=== PATIENT | female | born 1945 | race African-American/Black ===

== ENCOUNTER 2017-06-23 17:45 | Emergency (ER) | payer OTHER ==
[~2017-06-23] VITALS: Ht 162.6 cm; Wt 63.5 kg
[~2017-06-23 17:45] MED LIST: AMLODIPINE BESY10 MG PO; ASPIRIN81 M2 PO; CALCIUM 600 +1 EAC1 PO; CENTRUM COMPLE1 EACH PO; COLESTIPOL HCL1 G1 PO; COQ-10100 MG PO; HYDROCHLOROTHIA25 M2 PO; LEVAQUIN 500 M500 MG PO; POTASSIUM20; PRAVACHOL 20 MG20 M1 PO; PREDNISONE 20 M20 M1 PO; PROVENTIL HFA6.7 G1 INH
[2017-06-23 18:51] LABS: ABSOLUTE NEUTROPHILS 2.5 thou/uL (1.4-8.2); BASOPHILS 0.9 % (0.0-2.0); EOSINOPHILS 2.7 % (0.0-3.0); HEMOGLOBIN 8.8 gm/dL (12.0-15.0); LYMPHOCYTES 23.8 % (24.0-44.0); MCH 23.9 pg (26.0-34.0); MCHC 32.4 g/dL (28.0-37.0); MCV 73.6 fL (80.0-100.0); MONOCYTES 6.1 % (1.0-8.0); PLATELET COUNT 388 thou/uL (150-400); POLYS 66.5 % (36.0-66.0); RBC 3.67 mil/uL (4.20-5.00); RDW 16.1 % (10.5-14.5); WBC 3.7 thou/uL (4.0-11.0)
[2017-06-23 19:09] LABS: CALCIUM 8.9 mg/dL (8.5-10.1); POTASSIUM 3.6 mmol/L (3.5-5.1)
[2017-06-23 19:13] LABS: ALBUMIN 2.9 g/dL (3.4-5.0); TOTAL BILIRUBIN 0.3 mg/dL (<0.1-1.0); TOTAL PROTEIN 6.7 g/dL (6.4-8.2)
[2017-06-23] MEDS ORDERED: LIPITOR 20 MG T20 M1 PO (19:16)
[2017-06-23] MEDS ORDERED: FENOFIBRATE160 MG PO (19:17)
[2017-06-23] MEDS ORDERED: NEURONTIN 300300 M1 PO (19:18)
[2017-06-23] MEDS ORDERED: LASIX 20 MG TAB20 MG PO (19:18)
[2017-06-23] MEDS ORDERED: AVAPRO300 MG PO (19:19)
[2017-06-23] MEDS ORDERED: PROAIR HFA8.5 GM INH (19:21)
[2017-06-23 19:52] LABS: URINE BILIRUBIN 1+ (Negative); URINE BLOOD NEGATIVE (Negative); URINE CLARITY CLEAR; URINE COLOR YELLOW; URINE GLUCOSE-RANDOM* NEGATIVE (Negative); URINE KETONES NEGATIVE (Negative); URINE LEUKOCYTES-REFLEX NEGATIVE (Negative); URINE NITRITE-REFLEX NEGATIVE (Negative); URINE PROTEIN (DIPSTICK) TRACE (Negative); URINE SPECIFIC GRAVITY 1.025 (1.005-1.035); URINE UROBILINOGEN 0.2 E.U./dl (0.2-1.0)
[2017-06-23 19:55] LABS: ICTOTEST (BILI CONFIRMATORY) Negative (Negative)
[2017-06-23 20:19] VITALS: BP 140/63
[2017-10-12] MEDS ORDERED: COLESTID1 GM PO (14:06)
[2017-10-12] MEDS ORDERED: LIPITOR 10 MG PO (14:06)
[2017-10-12] MEDS ORDERED: [UNRECOGNIZED DRUG - OTHER] DISSOLVE (14:06)
[2017-10-12] MEDS ORDERED: GABAPENTIN 300 MG PO (14:06)
[2017-10-12] MEDS ORDERED: POTASSIUM CHLORIDE E PO (14:06)
[2017-10-12] MEDS ORDERED: LASIX 20 MG TAB20 MG PO (14:06)
[2017-10-12] MEDS ORDERED: IRON325 PO (14:06)
[2017-10-12] MEDS ORDERED: PROTONIX40 M1 PO (14:06)
[2017-10-12] MEDS ORDERED: ZOFRAN 4 MG DISSOLVE (14:06)
[2017-10-12] MEDS ORDERED: HYDRALAZINE 2525 MG PO (14:06)
[2017-10-12] MEDS ORDERED: AMLODIPINE BESYLATE PO (14:06)
== END 2017-06-23 20:20 | disposition home or self-care (01) ==
LOC: ER 17:45
PROVIDERS: Emergency Medicine
DX: J98.8 Other specified respiratory disorders (principal); I10 Essential (primary) hypertension; M19.90 Unspecified osteoarthritis, unspecified site

== ENCOUNTER → 2018-08-30 | Outpatient (CLI) | payer OTHER ==
[~2018-08-30] MED LIST changes: +AMLODIPINE BESYLATE PO; +AVAPRO300 MG PO; +COLESTID1 GM PO; +FENOFIBRATE160 MG PO; +GABAPENTIN 300 MG PO; +HYDRALAZINE 2525 MG PO; +IRON325 PO; +LASIX 20 MG TAB20 MG PO; +LIPITOR 10 MG PO; +LIPITOR 20 MG T20 M1 PO; +NEURONTIN 300300 M1 PO; +POTASSIUM CHLORIDE E PO; +PROAIR HFA8.5 GM INH; +PROTONIX40 M1 PO; +ZOFRAN 4 MG DISSOLVE; +[UNRECOGNIZED DRUG - OTHER] DISSOLVE
== END ==
LOC: MRI 07:31
DX: M47.22 Other spondylosis with radiculopathy, cervical region (principal); M25.78 Osteophyte, vertebrae; M48.02 Spinal stenosis, cervical region

== ENCOUNTER → 2019-03-29 | Outpatient (CLI) | payer OTHER | LOC: CAT 12:35 | DX: N28.1 Cyst of kidney, acquired (principal); J84.10 Pulmonary fibrosis, unspecified; D73.89 Other diseases of spleen; R16.2 Hepatomegaly with splenomegaly, not elsewhere classified; I70.0 Atherosclerosis of aorta; Z90.49 Acquired absence of other specified parts of digestive tract ==

== ENCOUNTER → 2019-10-24 | Outpatient (CLI) | payer OTHER | LOC: SJCVC 15:01 | PROVIDERS: ATTEND Internal Medicine Cardiovascular Disease | DX: I25.10 Atherosclerotic heart disease of native coronary artery without angina pectoris (principal); I73.9 Peripheral vascular disease, unspecified; I65.23 Occlusion and stenosis of bilateral carotid arteries; I10 Essential (primary) hypertension; E78.00 Pure hypercholesterolemia, unspecified; Z79.899 Other long term (current) drug therapy; Z87.891 Personal history of nicotine dependence ==

== ENCOUNTER → 2020-02-02 | Outpatient (CLI) | payer OTHER | LOC: SJCVCIMAG 07:51 | PROVIDERS: ATTEND Internal Medicine Cardiovascular Disease | DX: I65.23 Occlusion and stenosis of bilateral carotid arteries (principal); R00.1 Bradycardia, unspecified; I73.9 Peripheral vascular disease, unspecified; I25.10 Atherosclerotic heart disease of native coronary artery without angina pectoris; E78.00 Pure hypercholesterolemia, unspecified; I10 Essential (primary) hypertension; Z95.828 Presence of other vascular implants and grafts; Z79.899 Other long term (current) drug therapy; Z87.891 Personal history of nicotine dependence ==

== ENCOUNTER → 2020-10-04 | Outpatient (CLI) | payer OTHER | LOC: SJCVC 13:26 | PROVIDERS: ATTEND Internal Medicine Cardiovascular Disease | DX: I25.10 Atherosclerotic heart disease of native coronary artery without angina pectoris (principal); I73.9 Peripheral vascular disease, unspecified; I65.23 Occlusion and stenosis of bilateral carotid arteries; I10 Essential (primary) hypertension; E78.00 Pure hypercholesterolemia, unspecified; Z79.899 Other long term (current) drug therapy; Z87.891 Personal history of nicotine dependence; Z72.89 Other problems related to lifestyle; Z88.1 Allergy status to other antibiotic agents ==